=== PATIENT | female | born 1970 | race Caucasian/White ===

== ENCOUNTER 2018-04-04 05:25 | Observation (INO) | payer OTHER ==
[~2018-04-04] VITALS: Ht 167.6 cm; Wt 109.0 kg
[~2018-04-04 05:25] MED LIST: OXYC-302 PO; PROTONIX PO
[2018-04-04] MEDS ORDERED: LIDOCAINE-MPF 1%, 2ML INFIL ONE (06:00)
[2018-04-04 06:06] VITALS: BP 125/87
[2018-04-04] MEDS ORDERED: LIDOCAINE 1%-EPI 1:100K, 20ML ONE (06:08)
[2018-04-04] MEDS ORDERED: NEOSPORIN OINT, 15GM ONE (06:08)
[2018-04-04] MEDS ORDERED: EPINEPHRINE TOPICAL SOLN 1 MG/ML, 30ML ONE ×2 (06:08→06:28)
[2018-04-04] MEDS ORDERED: BUPIVACAINE/PF-EPI 0.5% 1:200K ONE (06:08)
[2018-04-04] MEDS ORDERED: OFLOXACIN OPHTH 0.3%, 5ML ONE (06:12)
[2018-04-04 06:18] LABS: HCG UR SG 1.026 (1.003-1.030)
[2018-04-04] MEDS ORDERED: SULF-169 PO (06:30)
[2018-04-04] MEDS ORDERED: PUMP300C PO (06:30)
[2018-04-04] MEDS ORDERED: IBUP-1223 PO (06:30)
[2018-04-04] MEDS ORDERED: PANT40TA5 PO (06:30)
[2018-04-04] MEDS: LACTATED RINGERS 1,000 ML IV SCH ×2 (06:31→18:17)
[2018-04-04] MEDS ORDERED: MIDAZOLAM 1 MG/ML, 2ML ONE (06:53)
[2018-04-04] MEDS ORDERED: FENTANYL PF 250 MCG/5ML ONE ×2 (06:54→09:05)
[2018-04-04] MEDS ORDERED: PROPOFOL 10 MG/ML, 20ML ONE (06:55)
[2018-04-04] MEDS ORDERED: ROCURONIUM 10MG/ML,5ML ONE (06:55)
[2018-04-04] MEDS ORDERED: LIDOCAINE-MPF 2% ,5ML ONE ×2 (06:55→11:01)
[2018-04-04] MEDS ORDERED: CEFAZOLIN 1,000 MG ONE ×4 (06:56→11:39)
[2018-04-04] MEDS ORDERED: WATER-INJECTION,STERILE 10 ML IV ONE (06:57)
[2018-04-04] MEDS ORDERED: SCOPOLAMINE PATCH, 1.5MG PATCH.TD72 TD ONE (07:05)
[2018-04-04] MEDS ORDERED: GABAPENTIN 300 MG CAPSULE ONE (07:05)
[2018-04-04] MEDS ORDERED: ACETAMINOPHEN 500 MG TABLET ONE (07:05)
[2018-04-04] MEDS ORDERED: DEXMEDETOMIDINE 200 MCG/2 ML ONE (07:32)
[2018-04-04] MEDS ORDERED: NEOSTIGMINE 1 MG/ML, 10ML ONE (07:32)
[2018-04-04] MEDS ORDERED: ONDANSETRON 2MG/ML, 2ML ONE ×2 (07:32→17:22)
[2018-04-04] MEDS ORDERED: DEXAMETHASONE 4 MG/ML, 1ML ONE ×2 (07:41→07:42)
[2018-04-04] MEDS ORDERED: HALOPERIDOL 5 MG/ML IV PRN (12:00)
[2018-04-04] MEDS ORDERED: hydrALAzine 20 MG/ML, 1ML IV PRN (12:00)
[2018-04-04] MEDS ORDERED: OXYcodone 5 MG/5 ML ORAL.SOL UDC PO PRN (12:00)
[2018-04-04] MEDS ORDERED: MEPERIDINE/PF 25MG/0.5ML IVPush PRN (12:00)
[2018-04-04] MEDS ORDERED: PROMETHAZINE 25 MG/ML, 1ML IV PRN (12:00)
[2018-04-04] MEDS ORDERED: FENTANYL PF 100 MCG/2ML IV PRN (12:00)
[2018-04-04] MEDS ORDERED: ACETAMINOPHEN 325 MG TABLET PO PRN (12:00)
[2018-04-04] MEDS ORDERED: HYDROmorphone 1 MG/ML, 1ML IV PRN (12:00)
[2018-04-04] MEDS ORDERED: LABETALOL 5MG/ML, 20ML IV PRN (12:00)
[2018-04-04] MEDS ORDERED: ONDANSETRON 2MG/ML, 2ML IVPush PRN (18:00)
[2018-04-04] MEDS ORDERED: morphine SULFATE 10 MG/ML, 1ML IVPush PRN (18:30)
[2018-04-04 20:05] VITALS: BP 139/86
[2018-04-04] MEDS: SULFAMETH./TRIMETHOPRIM DS 800MG/160MG TABLET PO SCH (20:31)
[2018-04-04] MEDS: PANTOPROZOLE 40MG TABLET PO SCH (20:31)
[2018-04-04] MEDS: D5%-LACTATED RINGERS 1,000 ML IV SCH (20:31)
[2018-04-04 23:41] VITALS: BP 113/71
[2018-04-05 03:09] VITALS: BP 109/59
[2018-04-05] MEDS: D5%-LACTATED RINGERS 1,000 ML IV SCH (04:07)
[2018-04-05 07:53] VITALS: BP 105/67
[2018-04-05] MEDS: PANTOPROZOLE 40MG TABLET PO SCH (08:00)
[2018-04-05] MEDS: SULFAMETH./TRIMETHOPRIM DS 800MG/160MG TABLET PO SCH (08:04)
[2018-04-05] MEDS ORDERED: HYDR-3653 PO (09:08)
[2018-04-05] MEDS ORDERED: CEPH-368 PO (09:09)
[2018-04-05] MEDS ORDERED: ONDA4TAB10 PO (09:10)
== END 2018-04-05 09:25 | disposition home or self-care (01) ==
LOC: OUT 05:25 → ORIP 18:07 → 4NOR 18:32 → DCLOUNGE 04-05 09:15
PROVIDERS: ADMIT Specialist; ATTEND Specialist
DX: H66.92 Otitis media, unspecified, left ear (principal); H66.3X1 Other chronic suppurative otitis media, right ear; H71.11 Cholesteatoma of tympanum, right ear; K21.9 Gastro-esophageal reflux disease without esophagitis; K22.70 Barrett's esophagus without dysplasia; K57.92 Diverticulitis of intestine, part unspecified, without perforation or abscess without bleeding; Z90.49 Acquired absence of other specified parts of digestive tract
CPT/HCPCS: 20926; 69436; 69642; 81025; 88305; G0378; J0690; J1100; J2250; J2405; J2704; J2710; J3010; J3490; J7120; J7121